=== PATIENT | female | born 1965 | race Caucasian/White ===

== ENCOUNTER → 2023-06-22 | Outpatient (CLI) | payer OTHER, SELFPAY ==
--- NOTE | 2023-06-22 | IMM_PTH ---
PATIENT: PALOMA COLON LOC: [facility] U#:[id number] AGE/SX: 57/F ROOM: RE06/22/[address]: Dr. Spencer Colon MD : 1965 BED: DIS: 06/22/2023 SPEC #: [id number] RECD: 06/25/23 13:36 STATUS: SONY RELeila #: [id number] ADAMA: 06/22/23 00:[address]: Spencer Colon DEPT: IMMUNOHISTOCHEMISTRY RECD BY: Abril Castorena Tissues: A - Uterine cervix, NOS B - Endocervical Procedures: p16 (initial) KI-67 (add) PHYSICIAN & [place] [id number] SPECIMEN INFORMATION: Tissue Source: A - Cervix at 12, 3, 6 & 9 o'clock, B - Endocervical curettings Clinical Info: A63.0 Specimen Number: [id number] A & B CPT code: 25952 x2, 42777 x2 METHODOLOGY: Deparaffinized sections of prefer/formalin-fixed tissue or PAP/DQ stained slides are incubated with monoclonal/polyclonal antibodies/oligonucleotide probes. Localization is made via biotin free immunoperoxidase method. Appropriate controls are performed and reacted as expected. Results on target cell population are indicated in the following table: RESULTS: ANTIBODY / CLONE RESULT Block A P16 (E6H4) positive, rare Ki-67 (30-9) positive, low Block B P16 (E6H4) positive, focal, patchy Ki-67 (30-9) positive, low These tests were developed and their performance characteristics determined by [facility]. They may not have been cleared or approved by the [place]. Food and Drug Administration. The FDA has determined that such clearance or approval is not necessary. The above immunohistochemical/dualISH markers are ordered and reviewed by the Pathologist. INTERPRETATION: A. Cervix at 12, 3, 6 & 9 o'clock, biopsy: Focal HPV suspected. B. Endocervix, curettings: Consistent with focal HPV change. AM:ebony 06/26/2023
--- NOTE | 2023-06-22 08:30 | CER_PTH ---
PATIENT: PALOMA CUI LOC: [facility] U#:[id number] AGE/SX: 57/F ROOM: RE06/22/[address]: Dr. Spencer Cui MD : 1965 BED: DIS: 06/22/2023 SPEC #: [id number] RECD: 06/22/23 10:43 STATUS: SONY CARI #: [id number] ADAMA: 06/22/23 08:[address]: Spencer Cui DEPT: SURGICAL PATHOLOGY RECD BY: Mervat Gaytan Tissues: A - Uterine cervix, NOS B - Endocervical Procedures: Surgery Specimen Level IV HEADER OPERATION: Colposcopy PRE-OP DIAGNOSIS: A63.0 TISSUE SUBMITTED: Pham Gamino 12, 3, 6 & 9 o'clock, B - Endocervical curettings MICROSCOPIC DIAGNOSIS A. Cervix at 12, 3, 6 & 9 o'clock, biopsy: Focal HPV change suspected. See comment. B. Endocervix, curettings: Scant strips of benign superficial endocervix. Detached fragments of squamous epithelium with focal HPV change. See comment. AM:ebony 06/25/2023 COMMENT A & B. Results from immunohistochemistry ([id number]) for surrogate HPV marker (p16) will be reported separately. There is no definitive evidence of dysplasia. Case has been reviewed in consultation with Dr. Kyle who concurs with the above diagnosis. IDC:BREANNA MICROSCOPIC DESCRIPTION Slides are reviewed. GROSS DESCRIPTION A - Received in fixative is one container labeled with the patient's name and designated cervix 12, 3, 6 & 9 o'clock. The specimen consists of multiple irregular fragments of light singh soft tissue that in aggregate measure 1.0 x 0.5 x 0.1 cm. The specimen is totally submitted in one cassette. B - Received in fixative is one container labeled with the patient's name and designated ECC. The specimen consists of multiple irregular fragments of singh mucoid tissue that in aggregate measure 2.0 x 0.5 x 0.1 cm. The specimen is totally submitted in one cassette. / SJ:ebony 06/22/2023 TC:5 CPT: 19121 x2
== END | disposition home or self-care (01) ==
LOC: LABSPEC 10:38
PROVIDERS: Visit Provider Obstetrics & Gynecology
DX: A63.0 Anogenital (venereal) warts (principal)
CPT/HCPCS: 88305; 88341; 88342